=== PATIENT | male | born 1990 | race Caucasian/White ===

== ENCOUNTER → 2019-09-09 06:46 | Outpatient (CLI) | payer OTHER, SELFPAY ==
--- NOTE | 2019-09-09 | DI.ECHO.S_ITS ---
[facility] +---------+ : : [address] : [place] : : : : [id number] : : : : Phone: [phone]---------+ Echocardiogram Report + + :Name: STEVE BAUGH Study Date: 09/09/2019 Height: 71 in : :[facility] Weight: 288 lb : : Gender: Male BSA: 2.5 m2 : :: 1990 Age: 29 yrs BP: 152/90 mmHg: :Reason For Study: AFIB : : Performed By: Alvin Tafoya : :Referring: CECILIO VELA : + + Interpretation Summary 1) Mildly increased left ventricular size with mildly reduced systolic function (EF 45-50%). 2) Moderately enlarged right ventricle with mildly reduced function. 3) Severely enlarged right atrium and moderately enlarged left atrium. No PFO noted on bubble study. 4) There is mild to moderate mitral regurgitation and mild-moderate tricuspid regurgitation. 5) The IVC is dilated (diameter is greater than 2.1 cm) and it collapses less than 50% with a sniff. This suggests a high right atrial pressure of 15 mm Hg. 6) Compared to the Echo done 09/06/2018, LV appears mildly dilated and has mildly reduced systolic function. Procedure: A two-dimensional transthoracic echocardiogram with color flow and Doppler was performed. The study quality was technically good. Comparison is made with the echocardiogram of 09/06/18. A saline contrast injection was performed to assess for cardiac shunting. The patient was in normal sinus rhythm during the exam. The patient had occasional PVCs during the exam. Left Ventricle: There is normal left ventricular wall thickness. The left ventricle is mildly dilated. The ejection fraction is estimated to be 45-50%. There are no focal wall motion abnormalities. Flattened septum is consistent with RV pressure overload. Right Ventricle: The right ventricle is moderately dilated. Right ventricular systolic function is mildly reduced. Atria: The left atrium is moderately dilated. The right atrium is severely dilated. Injection of contrast documented no interatrial shunt. Mitral Valve: The mitral valve is normal in structure and function. There is mild to moderate mitral regurgitation. Aortic Valve: The aortic valve is trileaflet. The aortic valve opens well. No aortic regurgitation is present. Tricuspid Valve: The tricuspid valve is normal in structure and function. There is mild to moderate tricuspid regurgitation. The right ventricular systolic pressure is estimated to be at least 32 mmHg based on an estimated right atrial pressure of 15 mm Hg. Pulmonic Valve: The pulmonic valve is normal in structure and function. There is trace pulmonic regurgitation. Great Vessels: The aortic root is normal size. The dimensions of the ascending aorta are normal. The pulmonary artery is normal size. The IVC is dilated (diameter is greater than 2.1 cm) and it collapses less than 50% with a sniff. This suggests a high right atrial pressure of 15 mm Hg. Pericardium/ Pleura There is no pericardial effusion. There is no pleural effusion. MMode/2D Measurements & Calculations LVIDd: 6.1 cm LVOT diam: 2.4 cm LVIDs: 4.4 cm Ao root diam: 3.2 cm FS: 28.8 % Aortic Jxn: 2.8 cm EPSS: 0.85 cm asc Aorta Diam: 2.8 cm IVSd: 0.91 cm Ao Arch Diam (Prox Trans): 2.8 cm LVPWd: 1.00 cm LV howard. diameter/BSA (cm/m^2): 2.5 LV sys. diameter/BSA (cm/m^2): 1.8 LA dimension: 3.7 cm RA long axis: 7.9 cm LA A2 area: 31.1 cm2 RA area: 43.8 cm2 LA A4 area: 30.7 cm2 RA vol: 207.3 ml LA length (vol): 7.5 cm RA : 84.2 ml/m2 LA vol: 107.9 ml IVC diam: 3.0 cm LA vol index: 43.8 ml/m2 RVD1 (basal): 5.4 cm RVD2 (mid): 5.2 cm Doppler Measurements & Calculations Ao V2 max: 130.1 cm/sec LVOT Max Gio: 102.4 cm/sec Ao V2 mean: 97.4 cm/sec LV V1 max P.2 mmHg Ao max P.8 mmHg LV V1 VTI: 20.7 cm Ao mean P.1 mmHg JOSSUE(I,D): 3.6 cm2 Ao V2 VTI: 25.4 cm JOSSUE(V,D): 3.5 cm2 sev ratio: 0.81 JOSSUE indexed to BSA (cm^2/m^2): 1.5 MV E max gio: 88.6 cm/sec TR max gio: 204.9 cm/sec MV A max gio: 43.2 cm/sec TR max P.8 mmHg MV E/A: 2.1 PA V2 max: 69.3 cm/sec Med Peak E' Gio: 9.9 cm/sec PA V2 mean: 51.9 cm/sec E/E' med: 9.0 PA mean P.2 mmHg Lat Peak E' Gio: 16.3 cm/sec PA pr(Accel): 16.6 mmHg E/E' lat: 5.4 PA Accel Time: 0.13 sec E/e' average: 7.2 MV dec time: 0.11 sec SV(LVOT): 92.0 ml Reading Physician:11:19 PM
== END ==
PROVIDERS: PCP Physician Assistant; Visit Provider Internal Medicine Cardiovascular Disease
DX: I08.1 Rheumatic disorders of both mitral and tricuspid valves (principal); I48.11 Longstanding persistent atrial fibrillation
CPT/HCPCS: 93306